=== PATIENT | female | born 1950 | race Caucasian/White ===

== ENCOUNTER 2018-01-10 04:54 | Emergency (ER) | payer OTHER, MEDICARE ==
[~2018-01-10] VITALS: Ht 154.9 cm; Wt 72.6 kg
[~2018-01-10 04:54] MED LIST: ASPIRIN325 MG PO; B-100 COMPLEX1 EACH PO; CITRACAL + BON1 EACH PO; MULTI VITAMIN1 EACH PO; RESTASIS1 DROP OD; SYNTHROID100 MCG PO; ZOLOFT50 MG PO
[2018-01-10] MEDS ORDERED: METFORMIN HCL500 MG PO (05:05)
[2018-01-10] MEDS ORDERED: ELIQUIS5 MG PO (06:43)
== END 2018-01-10 07:00 | disposition home or self-care (01) ==
LOC: ED 04:54
DX: I82.4Z1 Acute embolism and thrombosis of unspecified deep veins of right distal lower extremity (principal); E11.9 Type 2 diabetes mellitus without complications; E03.9 Hypothyroidism, unspecified; Z88.6 Allergy status to analgesic agent; Z88.1 Allergy status to other antibiotic agents; Z88.5 Allergy status to narcotic agent; Z79.899 Other long term (current) drug therapy; Z79.82 Long term (current) use of aspirin; Z79.84 Long term (current) use of oral hypoglycemic drugs
CPT/HCPCS: 80053; 85025; 85610; 85730; 93971; 99284

== ENCOUNTER 2019-01-11 19:16 | Emergency (ER) | payer OTHER, MEDICARE ==
[~2019-01-11] VITALS: Ht 154.9 cm; Wt 72.6 kg
[~2019-01-11 19:16] MED LIST changes: +ELIQUIS5 MG PO; +METFORMIN HCL500 MG PO
[2019-01-11] MEDS ORDERED: VITAMIN D-32000 UNIT PO (19:34)
[2019-01-11] MEDS ORDERED: PREDNISONE20 MG PO (22:06)
[2019-01-11] MEDS ORDERED: OXYCODONE HCL5 MG PO (22:06)
== END 2019-01-11 22:29 | disposition home or self-care (01) ==
LOC: ED 19:16
DX: M25.562 Pain in left knee (principal); E03.9 Hypothyroidism, unspecified; E11.9 Type 2 diabetes mellitus without complications; Z88.8 Allergy status to other drugs, medicaments and biological substances; Z88.1 Allergy status to other antibiotic agents; Z88.5 Allergy status to narcotic agent; Z79.899 Other long term (current) drug therapy; Z79.82 Long term (current) use of aspirin; Z79.84 Long term (current) use of oral hypoglycemic drugs
CPT/HCPCS: 73560; 80048; 84550; 85025; 85651; 96372; 99283; J1100; J1885

== ENCOUNTER 2020-09-13 10:06 | Emergency (ER) | payer MEDICARE ==
[~2020-09-13] VITALS: Ht 154.9 cm; Wt 72.6 kg
[~2020-09-13 10:06] MED LIST changes: +OXYCODONE HCL5 MG PO; +PREDNISONE20 MG PO; +VITAMIN D-32000 UNIT PO
--- NOTE | 2020-09-13 13:29 | EKG ---
[facility] [address] [facility] [place], [place] [address] Signed Normal sinus rhythm Cannot rule out Inferior infarct , age undetermined Possible Anterior infarct , age undetermined Abnormal ECG No previous ECGs available Confirmed by MALENA ZIMMER DO ([id number]) on 09/13/2020 1:29:21 PM Electronically Signed By: MALENA ZIMMER DO 09/13/20 1329 PATIENT NAME: EVER DEL CASTILLO JS Electrocardiogram DATE OF : 54 PHYSICIAN: MALENA ZIMMER DO REPORT #: [id number] REPORT IS CONFIDENTIAL AND NOT TO BE RELEASED WITHOUT AUTHORIZATION
== END 2020-09-13 13:10 | disposition home or self-care (01) ==
LOC: ED 10:06
DX: R07.89 Other chest pain (principal); E03.9 Hypothyroidism, unspecified; E11.9 Type 2 diabetes mellitus without complications; Z88.8 Allergy status to other drugs, medicaments and biological substances; Z88.1 Allergy status to other antibiotic agents; Z88.5 Allergy status to narcotic agent; Z79.899 Other long term (current) drug therapy; Z79.82 Long term (current) use of aspirin; Z79.84 Long term (current) use of oral hypoglycemic drugs
CPT/HCPCS: 71046; 80053; 83735; 84484; 85025; 85379; 93005; 93010; 99285-25

== ENCOUNTER 2022-11-23 07:04 | Day surgery (SDC) | payer MEDICARE, OTHER ==
[~2022-11-23] VITALS: Ht 154.9 cm; Wt 63.8 kg
[2022-11-23 07:26] VITALS: BP 134/67
--- NOTE | 2022-11-23 09:28 | NUR ---
11/23/22 09 TorriLacy Pili 0853- PT ARRIVES TO PACU DROWSY, LEFT LATERAL POSITION. LR INFUSING TO RH IV. PT DENIES PAIN AND NAUSEA. ENCOURAGED TO PASS GAS. MONITORS APPLIED. NO OTHER NEEDS AT THIS TIME. 0900- PT RESTING, EASILY AROUSABLE. CONTINUE TO MONITOR. 0919- PT ROLLED TO BACK, SITTING UP. DRINKING WATER AND TOLERATING WELL. PT FALLS ASLEEP INTERMITTENTLY. ALL VITAL SIGNS STABLE. PT STATES "IT'S WEIRD THAT YOU CAN SLEEP ALL NIGHT AND THEN JUST STILL FALL ASLEEP SO EASY". ENCOURAGED TO REST TODAY.
[2022-11-23 09:29] VITALS: BP 129/64
--- NOTE | 2022-11-27 02:13 | OR ---
[facility] [address] [place], [place] [address] Signed DATE OF OPERATION: 11/23/2022 SURGEON: Kyree Short MD PREOPERATIVE DIAGNOSIS: Family history of colon cancer (mother). POSTOPERATIVE DIAGNOSIS: Normal colon to cecum. PROCEDURE: Total colonoscopy to cecum. ANESTHESIA: Intravenous sedation; fentanyl 100 mcg and Versed 5 mg. INDICATION: This 72-year-old white woman is a patient of NAHUM Rodríguez. She is known to me from the past having undergone colonoscopy in 2012 at which time, she is found to have a normal colon. 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 She has a family history of colon cancer in her mother. She currently has no symptoms of bleeding, diarrhea or constipation. She is admitted at this time to undergo surveillance colonoscopy based on family history. FINDINGS: The prep was good. Complete colonoscopy was undertaken of the cecum. There was no evidence of polyps, diverticular formation, colitis or cancer. DESCRIPTION OF PROCEDURE: The patient was brought to the endoscopy suite and placed in the lateral decubitus position, given intravenous sedation to the point of slurred speech and nystagmus. Digital rectal examination was normal. An Olympus video colonoscope was passed in the rectum and manipulated throughout the colon ultimately intubating the cecum itself. The ileocecal valve and appendiceal orifice were normal. The scope was withdrawn from that point and careful inspection throughout showed no sign of abnormality; specifically no polyps, diverticular formation, colitis or cancer. Retroflexed view was normal as well. The scope was removed. The patient was taken to the recovery room in good condition. Electronically Signed By: KYREE SHORT MD 11/27/22 0213 PATIENT NAME: EVER DEL CASTILLO OPERATIVE REPORT DATE OF : 54 REPORT #: [id number] PHYSICIAN: KYREE SHORT MD PCP: RAMÍREZ AUGUST REPORT IS CONFIDENTIAL AND NOT TO BE RELEASED WITHOUT AUTHORIZATION [facility] [address] [place], [place] [address] Signed CONCLUDING DIAGNOSIS: Normal colon to cecum. PLAN: Recommend repeat colonoscopy in 5 years based on family history of colon cancer in her mother, sooner of course if symptoms should develop. She will return to the ongoing care of Ramírez August. MD BLAIR Diggs/LAM /[id number] cc: NAHUM Rodríguez Copies: RAMÍREZ AUGUST ~ Electronically Signed By: KYREE SHORT MD 11/27/22 0213 PATIENT NAME: EVER DEL CASTILLO OPERATIVE REPORT DATE OF : 54 REPORT #: [id number] PHYSICIAN: KYREE SHORT MD PCP: RAMÍREZ AUGUST REPORT IS CONFIDENTIAL AND NOT TO BE RELEASED WITHOUT AUTHORIZATION
== END 2022-11-23 09:40 | disposition home or self-care (01) ==
LOC: OPS 07:04 → DS 07:04 → OPS 08:30 → DS 08:30 → OPS 09:40
PROVIDERS: ATTEND Surgery
PROC: 0DJD8ZZ Inspection of Lower Intestinal Tract, Via Natural or Artificial Opening Endoscopic (ICD-10-PCS; principal; 2022-11-23 08:30)
DX: Z12.11 Encounter for screening for malignant neoplasm of colon (principal); Z80.0 Family history of malignant neoplasm of digestive organs; Z86.010 Personal history of colon polyps; Z96.659 Presence of unspecified artificial knee joint; Z96.649 Presence of unspecified artificial hip joint; Z90.711 Acquired absence of uterus with remaining cervical stump; Z90.49 Acquired absence of other specified parts of digestive tract
CPT/HCPCS: 99153; G0500; J0690; J2250; J3010; J7121